=== PATIENT | male | born 1965 | race Hispanic/Latino ===

== ENCOUNTER 2021-05-09 18:43 | Inpatient (IN) | payer SELFPAY ==
[~2021-05-09] VITALS: Ht 165.1 cm; Wt 117.7 kg
[~2021-05-09 18:43] MED LIST: IBUP-2071 PO
[2021-05-09 18:44] VITALS: BP 141/83
[2021-05-09] MEDS ORDERED: ONDANSETRON 4MG INJ IVP ONE (19:30)
[2021-05-09] MEDS ORDERED: MORPHINE 4 MG SYG IVP ONE (19:30)
[2021-05-09] MEDS ORDERED: 0.9%NACL 1000ML 1,000 ML IV ONE (19:30)
[2021-05-09] MEDS ORDERED: IOHEXOL-350 75 ML VIAL IV ONE (19:35)
[2021-05-09 19:40] LABS: BASOPHILS % (AUTO) 0.3 % (0.0-5.0); EOSINOPHILS % (AUTO) 0.2 % (0.0-8.0); HEMATOCRIT 44.7 % (42-54); LYMPHOCYTES % (AUTO) 6.8 % (21.0-51.0); MEAN CORPUSCULAR VOLUME 91.2 fL (79-99); MONOCYTES % (AUTO) 3.5 % (3.0-13.0); NEUTROPHILS % (AUTO) 88.8 % (40.0-77.0); PLATELET COUNT (AUTO) 219 K/uL (130-400); RED CELL DISTRIBUTION WIDTH 13.2 % (11.0-15.5); WHITE BLOOD COUNT (AUTO) 17.8 K/uL (4.8-10.8)
[2021-05-09 19:51] LABS: CREATININE 0.9 mg/dL (0.5-1.5); POTASSIUM 4.1 mmol/L (3.5-5.1)
[2021-05-09 19:56] LABS: ALBUMIN 3.8 g/dL (3.5-5.0); BILIRUBIN,TOTAL 0.3 mg/dL (0.2-1.0)
[2021-05-09 20:16] LABS: APPEARANCE,URINE Clear (CLEAR); BILIRUBIN,URINE Negative (NEGATIVE); COLOR,URINE Yellow (YELLOW); GLUCOSE, URINE (UA) Negative (NEGATIVE); KETONES,URINE Negative (NEGATIVE); LEUKOCYTE ESTERASE ,URINE Negative (NEGATIVE); NITRATE,URINE Negative (NEGATIVE); OCCULT BLOOD,URINE Negative (NEGATIVE); PH,URINE 6.5 (5.0-8.0); PROTEIN,URINE POS 1+ mg/dL (NEGATIVE); UROBILINOGEN,URINE 0.2 mg/dL (0.2-1.0)
[2021-05-09 20:28] LABS: BACTERIA,URINE Rare /HPF (None Seen); MUCUS,URINE Few LPF (None Seen); SQUAMOUS EPITHELIAL CELL,UR 0-2 /HPF (0-2); WBC,URINE 0-1 /HPF (0-1)
[2021-05-09 20:38] VITALS: BP 130/71
[2021-05-09] MEDS ORDERED: ONDANSETRON 4MG INJ IV PRN (22:00)
[2021-05-09] MEDS ORDERED: PIP/TAZ ZOSYN 3.375G 3.375 GM VIAL IVPB SCH (22:00)
[2021-05-09] MEDS ORDERED: MORPHINE 2 MG SYG IVP PRN (22:00)
[2021-05-09] MEDS ORDERED: 0.9%NACL 50ML IV SCH (22:00)
[2021-05-09] MEDS ORDERED: 0.9%NACL 1000ML 1,000 ML IV SCH (22:00)
[2021-05-09] MEDS ORDERED: ACETAMINOPHEN 325 MG TAB PO PRN ×2 (22:00)
[2021-05-09] MEDS ORDERED: NITROGLYCERIN 0.4 MG SL TAB SL PRN (22:00)
[2021-05-09 22:23] LABS: AMPHET/METH SCREEN,URINE NEGATIVE (NEGATIVE); BARBITURATE SCREEN, URINE NEGATIVE (NEGATIVE); BENZODIAZEPINES SCREEN,URINE NEGATIVE (NEGATIVE); CANNABINOID SCREEN,URINE NEGATIVE (NEGATIVE); COCAINE SCREEN,URINE NEGATIVE (NEGATIVE); OPIATE SCREEN,URINE POSITIVE (NEGATIVE); PHENCYCLIDINE SCREEN,URINE NEGATIVE (NEGATIVE)
[2021-05-09 22:23] LABS: HEMOGLOBIN A1C 5.9 % (4.0-6.0)
[2021-05-09 22:30] LABS: INR 1.01 (0.85-1.15)
[2021-05-09 22:31] LABS: PARTIAL THROMBOPLASTIN TIME 25.4 SEC (26.3-35.5)
[2021-05-09] MEDS: ZOSYN 3.375GM+NS 50ML 50 ML IV SCH (23:40)
[2021-05-09] MEDS: 0.9%NACL 1000ML 1,000 ML IV SCH (23:40)
[2021-05-10] VITALS (25 sets, daily range): BP systolic 100–152; BP diastolic 49–86
[2021-05-10 06:20] LABS: BASOPHILS % (AUTO) 0.3 % (0.0-5.0); EOSINOPHILS % (AUTO) 0.9 % (0.0-8.0); HEMATOCRIT 41.1 % (42-54); LYMPHOCYTES % (AUTO) 13.8 % (21.0-51.0); MEAN CORPUSCULAR HEMOGLOBIN 30.9 pg (27.0-33.0); MEAN CORPUSCULAR HGB CONC 33.3 g/dL (32.0-36.0); MEAN CORPUSCULAR VOLUME 92.8 fL (79-99); MONOCYTES % (AUTO) 8.7 % (3.0-13.0); PLATELET COUNT (AUTO) 205 K/uL (130-400); RED BLOOD CELL COUNT(AUTO) 4.43 MIL/uL (4.50-6.20); RED CELL DISTRIBUTION WIDTH 13.4 % (11.0-15.5); WHITE BLOOD COUNT (AUTO) 15.1 K/uL (4.8-10.8)
[2021-05-10 06:46] LABS: ALANINE AMINOTRANSFERASE 33 U/L (12-78); ALBUMIN 3.2 g/dL (3.5-5.0); ASPARTATE AMINOTRANSFERASE 11 U/L (10-37); BILIRUBIN,TOTAL 0.2 mg/dL (0.2-1.0); CARBON DIOXIDE 27 mmol/L (21-32); CHLORIDE 106 mmol/L (101-111); CREATINE KINASE, TOTAL 112 U/L (21-232); CREATININE 0.8 mg/dL (0.5-1.5); GLOMERULAR FILTR. RATE CALC 106 mL/min (>60); GLUCOSE,RANDOM 107 mg/dL (70-105); MYOGLOBIN 33 ng/mL (10-92); POTASSIUM 3.4 mmol/L (3.5-5.1); SODIUM SERUM 140 mmol/L (136-145); TROPONIN I < 0.04 ng/mL (0.00-0.06); UREA NITROGEN, BLOOD 11 mg/dL (7-18)
[2021-05-10] MEDS: ZOSYN 3.375GM+NS 50ML 50 ML IV SCH ×3 (08:23→23:16)
[2021-05-10] MEDS: FAMOTIDINE 20MG VIAL IV SCH ×2 (09:46→20:26)
[2021-05-10] MEDS: 0.9%NACL 1000ML 1,000 ML IV SCH (09:46)
[2021-05-10] MEDS ORDERED: SUCCINYLCHOLINE 200MG/10ML SYR ONE (11:18)
[2021-05-10] MEDS ORDERED: LIDOCAINE PF 100MG/5ML (2%) SYRINGE 5ML ONE (11:18)
[2021-05-10] MEDS ORDERED: PROPOFOL 10 MG/ML 20ML VIAL IV ONE (11:22)
[2021-05-10] MEDS ORDERED: FENTANYL CITRATE PF 50 MCG/1 ML 2ML VIAL ONE (11:22)
[2021-05-10] MEDS ORDERED: ROCURONIUM 10MG/1ML SYR 10 MG/ML ML ONE (11:22)
[2021-05-10] MEDS ORDERED: BUPIVACAINE/PF 0.5% 30ML VIAL ONE (12:24)
[2021-05-10] MEDS ORDERED: GLYCOPYRROLATE 1 MG/5 ML SYRINGE ONE (13:13)
[2021-05-10] MEDS ORDERED: EPHEDRINE SULFATE 50 MG/ML AMPULE ONE (13:18)
[2021-05-10] MEDS ORDERED: NEOSTIGMINE 5MG/5ML SYR IV ONE (13:48)
[2021-05-10] MEDS ORDERED: KETOROLAC 30MG VIAL (30MG/ML) ONE (13:49)
[2021-05-10] MEDS ORDERED: MEPERIDINE-PF 25 MG/ML SYG ONE ×2 (13:49→14:39)
[2021-05-10] MEDS ORDERED: ACETAMINOPHEN WITH CODEINE 1 TAB TAB PO PRN (14:30)
[2021-05-10] MEDS ORDERED: ONDANSETRON 4MG INJ IVP PRN (14:30)
[2021-05-10] MEDS: LACTATED RINGERS 1000ML 1,000 ML IV SCH (16:43)
[2021-05-11] VITALS: BP 121/74
[2021-05-11 04:00] VITALS: BP 125/77
[2021-05-11 05:04] LABS: BASOPHILS % (AUTO) 0.3 % (0.0-5.0); EOSINOPHILS % (AUTO) 0.7 % (0.0-8.0); HEMATOCRIT 40.9 % (42-54); LYMPHOCYTES % (AUTO) 15.1 % (21.0-51.0); MEAN CORPUSCULAR HEMOGLOBIN 30.8 pg (27.0-33.0); MONOCYTES % (AUTO) 7.1 % (3.0-13.0); NEUTROPHILS % (AUTO) 76.5 % (40.0-77.0); PLATELET COUNT (AUTO) 191 K/uL (130-400); RED BLOOD CELL COUNT(AUTO) 4.26 MIL/uL (4.50-6.20); RED CELL DISTRIBUTION WIDTH 13.7 % (11.0-15.5); WHITE BLOOD COUNT (AUTO) 12.7 K/uL (4.8-10.8)
[2021-05-11] MEDS: LACTATED RINGERS 1000ML 1,000 ML IV SCH ×2 (06:05→17:10)
[2021-05-11] MEDS: ZOSYN 3.375GM+NS 50ML 50 ML IV SCH ×2 (06:05→16:55)
[2021-05-11 08:00] VITALS: BP 141/78
[2021-05-11] MEDS: 0.9%NACL 1000ML 1,000 ML IV SCH (09:22)
[2021-05-11] MEDS: FAMOTIDINE 20MG VIAL IV SCH (09:41)
[2021-05-11] MEDS ORDERED: IBUP-2071 PO (09:58)
[2021-05-11] MEDS ORDERED: METR-172 PO (09:58)
[2021-05-11] MEDS ORDERED: LEVO500T89 PO (09:58)
[2021-05-11 12:00] VITALS: BP 127/75
[2021-05-11 16:00] VITALS: BP 127/69
== END 2021-05-11 18:45 | disposition home or self-care (01) | DRG 342 ==
LOC: EDH 18:43 → EDHIP 18:44 → 3BH 05-10 00:07
PROVIDERS: ADMIT Internal Medicine; ATTEND Internal Medicine
PROC: 0DTJ4ZZ Resection of Appendix, Percutaneous Endoscopic Approach (ICD-10-PCS; principal; 2021-05-10 12:00)
DX: K35.80 Unspecified acute appendicitis (principal); Z68.41 Body mass index [BMI] 40.0-44.9, adult; D72.829 Elevated white blood cell count, unspecified; E78.5 Hyperlipidemia, unspecified; E66.9 Obesity, unspecified; Z20.822 Contact with and (suspected) exposure to COVID-19; Z82.3 Family history of stroke; Z83.3 Family history of diabetes mellitus; Z82.0 Family history of epilepsy and other diseases of the nervous system; Z82.5 Family history of asthma and other chronic lower respiratory diseases; Z82.49 Family history of ischemic heart disease and other diseases of the circulatory system
CPT/HCPCS: 36415; 71046; 73630; 74177; 80048; 80053; 80305; 81001; 82550; 83036; 83690; 83735; 83874; 84484; 85025; 85610; 85730; 87040; 87635; 93005; C9803; G0378; J0330; J1885; J2001; J2175; J2270; J2405; J2543; J2704; J2710; J3010; J3490; J7030; J7120; Q9967